=== PATIENT | male | born 1980 | race Caucasian/White ===

== ENCOUNTER 2021-05-08 20:51 | Inpatient (IN) | payer OTHER ==
[~2021-05-08] VITALS: Ht 175.3 cm; Wt 102.1 kg
[2021-05-08 21:45] LABS: HEMOGLOBIN 13.7 gm/dl (14.0-17.5); RED BLOOD COUNT 4.93 M/UL (4.20-5.50); WHITE BLOOD COUNT 4.3 K/UL (4.5-11.0)
[2021-05-08 22:03] LABS: BUN/CREATININE RATIO 15 (0-10)
[2021-05-09 03:41] LABS: HEMOGLOBIN 13.1 gm/dl (14.0-17.5); RED BLOOD COUNT 4.75 M/UL (4.20-5.50); WHITE BLOOD COUNT 3.5 K/UL (4.5-11.0)
[2021-05-09 04:06] LABS: BUN/CREATININE RATIO 14 (0-10)
[2021-05-09] MEDS ORDERED: DECADRON6 MG PO (14:18)
== END 2021-05-10 15:00 | disposition home or self-care (01) | DRG 177 ==
LOC: ER1 20:51 → CDU 23:39
PROVIDERS: Internal Medicine; Physician Assistant; ADMIT Internal Medicine
PROC: XW033E5 Introduction of Remdesivir Anti-infective into Peripheral Vein, Percutaneous Approach, New Technology Group 5 (ICD-10-PCS; principal; 2021-05-08)
PROC: 3E02340 Introduction of Influenza Vaccine into Muscle, Percutaneous Approach (ICD-10-PCS; 2021-05-08)
PROC: 3E0333Z Introduction of Anti-inflammatory into Peripheral Vein, Percutaneous Approach (ICD-10-PCS; 2021-05-08)
DX: U07.1 COVID-19 (principal); J96.01 Acute respiratory failure with hypoxia; J12.82 Pneumonia due to coronavirus disease 2019; E87.6 Hypokalemia; Z90.89 Acquired absence of other organs; Z23 Encounter for immunization
CPT/HCPCS: 36600; 71045; 80053; 82803; 85025; 96374; 99285; G0378; J1100; J1650; J7030; U0002; U0003

== ENCOUNTER 2021-05-21 13:53 | Emergency (ER) | payer OTHER ==
[~2021-05-21 13:53] MED LIST: DECADRON6 MG PO
[2021-05-21 14:57] LABS: HEMOGLOBIN 14.7 gm/dl (14.0-17.5); RED BLOOD COUNT 4.98 M/UL (4.20-5.50); WHITE BLOOD COUNT 14.8 K/UL (4.5-11.0)
[2021-05-21 15:28] LABS: BUN/CREATININE RATIO 15 (0-10)
[2021-05-21] MEDS ORDERED: ZOFRAN ODT 4 MG4 MG SL (16:48)
[2021-05-21] MEDS ORDERED: ENDOCET 5-3251 EACH PO (16:48)
[2021-05-22] MEDS ORDERED: ENDOCET 5-3251 EACH PO (11:02)
[2021-05-22] MEDS ORDERED: ZOFRAN ODT 4 MG4 MG SL (11:02)
== END 2021-05-21 17:00 | disposition home or self-care (01) ==
LOC: ER1 13:53
PROVIDERS: Emergency Medicine
DX: N13.2 Hydronephrosis with renal and ureteral calculous obstruction (principal)
CPT/HCPCS: 80053; 81001; 83690; 85025; 96374; 96375; 96376; 99284; J1170; J1885; J2405

== ENCOUNTER → 2022-03-14 | Outpatient (CLI) | payer OTHER ==
[~2022-03-14] MED LIST changes: +ENDOCET 5-3251 EACH PO; +ZOFRAN ODT 4 MG4 MG SL
== END ==
LOC: EXRD 10:16
DX: R05.3 Chronic cough (principal); U09.9 Post COVID-19 condition, unspecified; R91.8 Other nonspecific abnormal finding of lung field
CPT/HCPCS: 71046

== ENCOUNTER → 2022-03-31 | Outpatient (CLI) | payer OTHER | LOC: HEART 5 09:54 | DX: J18.9 Pneumonia, unspecified organism (principal); R06.02 Shortness of breath; R05.3 Chronic cough; U09.9 Post COVID-19 condition, unspecified | CPT/HCPCS: 71046; 94010; 95012 ==